=== PATIENT | male | born 1970 | race Caucasian/White ===

== ENCOUNTER 2021-11-29 21:05 | Inpatient (IN) | payer MEDICARE, SELFPAY ==
--- NOTE | 2021-11-29 21:07 | XRR_ITS ---
PROCEDURE INFORMATION: Exam: XR Chest Exam date and time: 11/29/2021 9:29 PM Age: 51 years old Clinical indication: Fever TECHNIQUE: Imaging protocol: Radiologic exam of the chest. Views: 1 view. COMPARISON: CR Chest 1 [place] [id number] 05/05/2017 1:21 PM FINDINGS: Lungs: Right hilar to lower lobe atelectasis versus minimal infiltrate. Pleural spaces: Unremarkable. No pleural effusion. No pneumothorax. Heart/Mediastinum: Unremarkable. No cardiomegaly. Bones/joints: Unremarkable. XR/XR chest 1V portable [id number] IMPRESSION: Right hilar to lower lobe atelectasis versus minimal infiltrate.
[2021-11-29 21:22] VITALS: BP 139/74; PULSE 98; RESP 18; TEMP 38.2; O2SAT 99; BMI 32.1
--- NOTE | 2021-11-29 21:29 | W.ED.GENADLT ---
Documented by User: JAREK Rai 11/29/21 23:31 HPI - General Adult General: Chief complaint: Abdominal Pain Stated complaint: PAIN ALL OVER Time Seen by Provider: 11/29/21 21:23 History of Present Illness: Patient is a 51-year-old male comes to the ED via EMS with pain all over. Ambulance started IV and started patient with a bag of IV fluids. Patient states he has been having pain all over his body and body aches for the past couple days. Endorses some nausea but denies any emesis. Denies any localized pain such as chest pain or abdominal pain. He does endorse having some generalized abdominal pain. He was very nonspecific about his pain and just continues to state its all over his body. Patient does admit to using IV heroin and IV methamphetamines along with marijuana in the last 24 hours. Associated symptoms: Reports nausea; Deny chest pain, dyspnea, headache(s), rash, palpitations or vomiting Review of Systems Const: Reports: body aches; Denies: fever(s), chills or fatigue Eyes: Denies: change in vision or eye discomfort ENMT: Denies: throat pain, odynophagia, nasal discharge or nasal congestion Card: Denies: chest pain, palpitations, edema, swelling of feet/ankles, dyspnea on exertion or orthopnea Resp: Denies: dyspnea, productive cough or non-productive cough GI: Reports: nausea; Denies: abdominal pain, vomiting, diarrhea, constipation or hematochezia : Denies: flank pain, difficulty urinating, dysuria or hematuria Musc: Denies: neck pain, back pain or extremity swelling Skin/Breast: Denies: rash or new lesions Neuro: Denies: headache(s), numbness in extremities or weakness in extremities [facility] ED PFSH: Medical History No pertinent family history Surgical History Hx of cholecystectomy Social History Smoking and tobacco status: current every day smoker Physical Exam Const: COMMON NORMALS: no acute distress, patient oriented x3 and alert GENERAL APPEARANCE: cooperative and comfortable OTHER: Patient is only giving short brief answers to all my questions and seems to be avoiding talking or giving more details during history. HENMT: COMMON NORMALS: normocephalic HEAD & SCALP: normocephalic MOUTH: Normal oral and palatal mucosa present THROAT: posterior oropharynx normal and uvula midline Eye: COMMON NORMALS: Equal, round and reactive pupils present PUPIL: Yes Equal, round and reactive pupils present, Yes Pupil accommodation reflex normal, Yes Dilated pupils bilaterally, Yes pupil size - right Right pupil size (mm): 4 and Yes pupil size - left Left pupil size (mm): 4 Neck/C-Spine: COMMON NORMALS: supple GENERAL: Yes normal visual inspection Resp: COMMON NORMALS: normal respiratory effort, No retractions, No use of accessory muscles and clear to auscultation bilaterally AUSCULTATION: clear to auscultation bilaterally Cardio: COMMON NORMALS: regular rate, regular rhythm, S1 normal heart sound present, S2 normal heart sound present, No gallops present (Cardio), No clicks present (Cardio), No murmurs present (Cardio) and Peripheral pulses 2+ throughout RATE: regular rate RHYTHM: regular rhythm HEART SOUNDS: S1 normal heart sound present and S2 normal heart sound present PERIPHERAL PULSES: Peripheral pulses 2+ throughout GI: COMMON NORMALS: Normal to inspection, nondistended, normoactive bowel sounds present, Soft to palpation, non-tender and no masses PALPATION: Yes Soft to palpation : COMMON NORMALS: Yes no CVA tenderness BLADDER/KIDNEY EXAM: Yes no CVA tenderness Back/Pelvis: COMMON NORMALS: no CVA tenderness Extremity: COMMON NORMALS: normal to inspection Neuro: COMMON NORMALS: patient oriented x3 and moves all extremities SENSORIUM/ORIENTATION: Yes alert Skin: GENERAL SKIN EXAM: dry skin Course Vital Signs: Vital signs: Vital Signs Temperature 100.8 F H 11/29/21 21:22 Pulse Rate 98 11/29/21 21:22 Respiratory Rate 18 11/29/21 21:22 Blood Pressure 139/74 11/29/21 21:22 Pulse Oximetry 99 11/29/21 21:22 [facility] - General Adult Lab Data I reviewed the patient's lab results. : 11/29/21 20:45 11/29/21 20:45 Radiology Impressions Chest X-Ray 11/29/21 21:07 IMPRESSION: Right hilar to lower lobe atelectasis versus minimal infiltrate. Abdomen/Pelvis CT 11/29/21 22:01 IMPRESSION: 1. Mildly prominent fluid in the small bowel without dilation may reflect an enteritis. 2. Spleen enlarged to 13.8 cm. 3. Cholecystectomy. Laboratory Results WBC 11.2 10^3/uL (4.0-10.0) H 11/29/21 20:45 RBC 5.23 10^6/uL (4.1-5.3) 11/29/21 20:45 Hgb 15.4 g/dL (11.7-16.6) 11/29/21 20:45 Hct 42.1 % (42.0-52.0) 11/29/21 20:45 MCV 80.5 fl (80-94) 11/29/21 20:45 MCH 29.4 pg (28.0-34.0) 11/29/21 20:45 MCHC 36.6 g/dL (30.0-36.0) H 11/29/21 20:45 RDW 12.5 % (12.1-15.1) 11/29/21 20:45 Plt Count 192 10^3/cmm (130-400) 11/29/21 20:45 MPV 12.4 fL (7.4-10.4) H 11/29/21 20:45 Neut % (Auto) 91.7 % 11/29/21 20:45 Lymph % (Auto) 4.3 % 11/29/21 20:45 Drew % (Auto) 3.2 % 11/29/21 20:45 Eos % (Auto) 0.1 % 11/29/21 20:45 Baso % (Auto) 0.2 % 11/29/21 20:45 Neut # (Auto) 10.25 10^3/uL (1.8-7.7) H 11/29/21 20:45 Lymph # (Auto) 0.5 10^3/uL (0.8-4.8) L 11/29/21 20:45 Drew # (Auto) 0.4 10^3/uL (0.2-0.9) 11/29/21 20:45 Eos # (Auto) 0.0 10^3/uL (0.0-0.8) 11/29/21 20:45 Baso # (Auto) 0.0 10^3/uL (0.0-0.1) 11/29/21 20:45 Nucleated RBC % (auto) 0 % 11/29/21 20:45 Nucleated RBCs # 0.0 /100WBC 11/29/21 20:45 Sodium 140 mmol/L (136-145) 11/29/21 20:45 Potassium 3.6 mmol/L (3.5-5.1) 11/29/21 20:45 Chloride 103 mmol/L (98-107) 11/29/21 20:45 Carbon Dioxide 21 mmol/L (22-29) L 11/29/21 20:45 Anion Gap 19.6 (5-19) H 11/29/21 20:45 BUN 25 mg/dL (6-20) H 11/29/21 20:45 Creatinine 1.5 mg/dL (0.7-1.2) H 11/29/21 20:45 GFR Calculation 49.1 mL/min (90-130) L 11/29/21 20:45 Glucose 120 mg/dL (65-115) H 11/29/21 20:45 Calculated Osmolality 296 mOsm/kg (285-295) H 11/29/21 20:45 Lactate 4.4 mmol/L (0.5-2.2) H* 11/29/21 21:44 Calcium 9.7 mg/dL (8.5-10.5) 11/29/21 20:45 Total Bilirubin 1.6 mg/dL (0.15-1.2) H 11/29/21 20:45 AST 594 U/L (0-40) H 11/29/21 20:45 ALT 510 U/L (0-41) H 11/29/21 20:45 Alkaline Phosphatase 189 IU/L (40-130) H 11/29/21 20:45 Total Protein 7.2 g/dL (6.6-8.7) 11/29/21 20:45 Albumin 4.2 g/dL (3.5-5.2) 11/29/21 20:45 Globulin 3.0 g/dL (1.3-4.6) 11/29/21 20:45 Lipase 19 U/L (13-60) 11/29/21 20:45 Hepatitis A IgM Ab Non-reactive (Nonreactive) 11/29/21 20:45 Hep Bs Antigen Non-reactive (Nonreactive) 11/29/21 20:45 Hep Bs Antibody 72.3 (11.5-1000) 11/29/21 20:45 Hep B Core Total Ab Non-reactive (Nonreactive) 11/29/21 20:45 Hepatitis C Antibody Reactive (Nonreactive) H 11/29/21 20:45 SARS-CoV-2 Ag (Rapid) Negative (Negative) 11/29/21 21:49 Discharge Plan Discharge Patient Disposition: Admitted As Inpatient Admit Provider: Marion Brambila Condition: Stable Coding Level of Care Code ED Collar Closer Lockstitch for Chg Fwd Exam Comprehensive Documented by User: Jason Hsu MD 11/29/21 23:06 HPI - General Adult General: Chief complaint: Abdominal Pain Stated complaint: PAIN ALL OVER Time Seen by Provider: 11/29/21 21:23 [facility] ED PFSH: Medical History No pertinent family history Surgical History Hx of cholecystectomy Social History Smoking and tobacco status: current every day smoker Course Vital Signs: Vital signs: Vital Signs Temperature 100.8 F H 11/29/21 21: Pulse Rate 98 11/29/21 21:22 Respiratory Rate 18 11/29/21 21:22 Blood Pressure 139/74 11/29/21 21:22 Pulse Oximetry 99 11/29/21 21:22 MDM - General Adult Medical Decision Making Patient presents with a fever he does have history of IV drug use along with recent use. CT of his abdomen here is normal does have an elevated lactate could be due to some dehydration we will trend his lactate patient's blood pressures here been normal. Will admit with his history of IV drug use to follow blood cultures and his fever will start antibiotics here. Spoke to hospitalist who is admitting. Lab Data : 11/29/21 20:45 11/29/21 20:45 Radiology Impressions Chest X-Ray 11/29/21 21:07 IMPRESSION: Right hilar to lower lobe atelectasis versus minimal infiltrate. Abdomen/Pelvis CT 11/29/21 22:01
[2021-11-29 21:38] LABS: Basophils % 0.2 %; Eosinophils % 0.1 %; Hematocrit 42.1 % (42.0-52.0); Hemoglobin 15.4 g/dL (11.7-16.6); Lymphocytes # 0.5 10^3/uL (0.8-4.8); Lymphocytes % 4.3 %; Mean Corpuscular HGB Conc 36.6 g/dL (30.0-36.0); Mean Corpuscular Hemoglobin 29.4 pg (28.0-34.0); Mean Corpuscular Volume 80.5 fl (80-94); Mean Platelet Volume 12.4 fL (7.4-10.4); Monocytes # 0.4 10^3/uL (0.2-0.9); Monocytes % 3.2 %; Neutrophils # 10.25 10^3/uL (1.8-7.7); Neutrophils % 91.7 %; Nucleated Red Blood Cells % 0 %; Platelet Count 192 10^3/cmm (130-400); Red Blood Count 5.23 10^6/uL (4.1-5.3); Red Cell Distribution Width 12.5 % (12.1-15.1); White Blood Count 11.2 10^3/uL (4.0-10.0)
[2021-11-29] MEDS: sodium chloride 0.9% 1,000 ML 999 ML IV ×2 (21:40→22:29)
[2021-11-29] MEDS: acetaminophen 500 mg Tablet 1000 MG PO (21:40)
[2021-11-29] MEDS: ondansetron 2 mg/ML SDV 2 mL 4 MG IVP (21:45)
[2021-11-29 21:53] LABS: Alanine Aminotransferase 510 U/L (0-41); Albumin Level 4.2 g/dL (3.5-5.2); Alkaline Phosphatase 189 IU/L (40-130); Anion Gap 19.6 (5-19); Aspartate Amino Transferase 594 U/L (0-40); Blood Urea Nitrogen 25 mg/dL (6-20); Calcium 9.7 mg/dL (8.5-10.5); Carbon Dioxide 21 mmol/L (22-29); Chloride 103 mmol/L (98-107); Glomerular Filtration Rate 49.1 mL/min (90-130); Glucose 120 mg/dL (65-115); Lipase 19 U/L (13-60); Osmolality Calculated 296 mOsm/kg (285-295); Potassium 3.6 mmol/L (3.5-5.1); Sodium 140 mmol/L (136-145); Total Bilirubin 1.6 mg/dL (0.15-1.2); Total Protein 7.2 g/dL (6.6-8.7)
--- NOTE | 2021-11-29 22:01 | CTR_ITS ---
PROCEDURE INFORMATION: Exam: CT Abdomen And Pelvis Without Contrast Exam date and time: 11/29/2021 10:14 PM Age: 51 years old Clinical indication: Nausea; Abdominal pain; Generalized; Prior surgery; Surgery date: 6+ months; Surgery type: Raeann; Additional info: Generalized abdominal pain and nausea TECHNIQUE: Imaging protocol: Computed tomography of the abdomen and pelvis without contrast. Radiation optimization: All CT scans at this facility use at least one of these dose optimization techniques: automated exposure control; mA and/or kV adjustment per patient size (includes targeted exams where dose is matched to clinical indication); or iterative reconstruction. COMPARISON: CT abdomen pelvis w con* [id number] 11/10/2018 12:05 PM RADIATION DOSE METRICS: Total DLP (mGy-cm): 1411.03 FINDINGS: Liver: Normal. No mass. Gallbladder and bile ducts: Cholecystectomy. Pancreas: Normal. No ductal dilation. Spleen: Spleen enlarged to 13.8 cm. Adrenal glands: Normal. No mass. Kidneys and ureters: Normal. No hydronephrosis. Stomach and bowel: Mildly prominent fluid in the small bowel without dilation may reflect an enteritis. Appendix: No evidence of appendicitis. Intraperitoneal space: Unremarkable. No free air. No significant fluid collection. Vasculature: Unremarkable. No abdominal aortic aneurysm. Lymph nodes: Unremarkable. No enlarged lymph nodes. Urinary bladder: Unremarkable as visualized. Reproductive: Unremarkable as visualized. Bones/joints: Unremarkable. No acute fracture. Soft tissues: Unremarkable. CT/CT abdomen pelvis wo con [id number] IMPRESSION: 1. Mildly prominent fluid in the small bowel without dilation may reflect an enteritis. 2. Spleen enlarged to 13.8 cm. 3. Cholecystectomy.
[2021-11-29 22:17] LABS: Lactate (Lactic Acid level) 4.4 mmol/L (0.5-2.2)
[2021-11-29 22:42] LABS: SARS Covid-2 Antigen Negative (Negative)
[2021-11-29 22:42] LABS: Hepatitis A Antibody IgM Non-Reactive (Nonreactive); Hepatitis B Core AB, Total Non-Reactive (Nonreactive); Hepatitis B Surface AB 72.3 (11.5-1000); Hepatitis B Surface Antigen Non-Reactive (Nonreactive); Hepatitis C Virus Antibody Reactive (Nonreactive)
[2021-11-29] MEDS: piperacillin-tazobactam 3.375 GM in sodium chloride 0.9% (plus) 50 ML IV (23:20)
[2021-11-29 23:47] LABS: Lactate (Lactic Acid level) 2.7 mmol/L (0.5-2.2)
[2021-11-29 23:59] VITALS: BP 127/88; PULSE 87; RESP 17; TEMP 37; O2SAT 99
[2021-11-30 00:26] VITALS: BP 128/78; PULSE 86; RESP 18; TEMP 37.2; O2SAT 97
--- NOTE | 2021-11-30 01:11 | P.HP_ITS ---
Providers/Chief Complaint 2 Admitting Physician: Marion Brambila MD Chief Complaint: PAIN ALL OVER History of Present Illness Maynor Juarez is a 51 year old male with past medical history of drug abuse who presents to the hospital today with generalized myalgias getting worse for last 2 to 3 days along with nausea and decreased oral intake.? Patient states he uses drugs on a daily basis including amphetamines and heroin with last use earlier on 11/29.? He denies of having any dysuria, diarrhea, headache, chest pain but does complain of runny nose.? He denies of having any history of seizures because of withdrawal from the drugs. On presentation in the ER he was found to have a white count of 11.2, creatinine of 1.5, lactate of 2.7, bilirubin of 1.6, AST/ALT of 594/510 with alkaline phosphatase of 189 Review of Systems 2 General: Reports: 10 or more systems reviewed and unremarkable except in HPI and below Const: Denies: fever(s), chills or body aches Eyes: Denies: change in vision, blurry vision or photophobia ENMT: Reports: hoarseness; Denies: throat pain, enlarged tonsils, odynophagia or nasal congestion Card: Denies: chest pain, palpitations, irregular heart rhythm, edema, swelling of feet/ankles, lightheadedness, pre-syncope, dyspnea on exertion or orthopnea Resp: Denies: dyspnea, productive cough, non-productive cough, wheezing, stridor, pain on inspiration, change in phlegm color, hemoptysis or chest congestion GI: Denies: abdominal pain, nausea, vomiting, hematemesis, coffee ground emesis, dysphagia, heartburn, diarrhea, constipation, GI cramping, change in stool character, hematochezia or melena : Denies: flank pain, dysuria, urinary frequency, urinary urgency, urinary hesitancy or hematuria Musc: Denies: neck pain, back pain, extremity pain, joint swelling, joint warmth or deformity Neuro: Denies: headache(s), numbness in extremities, weakness in extremities, sensory changes, difficulty walking, frequent falls, dizziness, vertigo, behavioral changes, Slurred speech present or seizure-like activity Psych: Denies: anxiety, depression, suicidal ideation or homicidal ideation Endo: Denies: polyuria, polydipsia, tired all the time, cold intolerance or hot flashes Cong/Lymph: Denies: easy bruising or easy bleeding Medications/Allergies Home Medications Medication Instructions Recorded Confirmed Last Taken Type clonazepam 1 mg tablet (Klonopin) 1 mg PO TID 10/12/19 11/30/21 11/28/21 History trazodone 100 mg tablet 100 mg PO BEDTIME PRN Sleep 10/12/19 11/30/21 11/27/21 History benztropine 1 mg tablet 1 mg PO BID 11/30/21 11/30/21 11/28/21 History meloxicam 7.5 mg tablet 7.5 mg PO DAILY PRN Pain 11/30/21 11/30/21 Unknown History Allergies Allergy/AdvReac Type Severity Reaction Status Date / Time No Known Allergies Allergy Verified 04/26/21 11:57 PFSH Acute 2 PFSH: Medical History (Updated 11/30/21 @ 12:44 by Monster Villanueva MD) History of intravenous drug abuse Hyperbilirubinemia Myositis Transaminitis Surgical History (Updated 11/30/21 @ 12:44 by Monster Villanueva MD) History of shoulder surgery Hx of cholecystectomy Social History Smoking and tobacco status: current every day smoker Vitals/I&O/Wt Last Vital Signs Temp 99.0 F 11/30/21 00:26 Pulse 86 11/30/21 00:26 Resp 18 11/30/21 00:26 BP 128/78 11/30/21 00:26 Pulse Ox 97 11/30/21 00:26 11/29/21 11/29/21 11/30/21 14:59 22:59 06:59 Intake Total 2049 Balance 2049 Weight last 48 hrs Weight 113.398 kg Physical Exam 2 Narrative: GEN: Awake, alert and oriented, no acute distress, anxious, jittery CVS: S1S@ N RS: CTA B/L except crackles over RUL Abd: Soft, nt/nd , bs+ PROTOTYPE FABRICATOR: no focal neuro deficits Data 11/30/21 10:28 11/30/21 10:28 Micro: Microbiology 11/29/21 22:04 Blood Culture - Preliminary Blood SPECIMEN COLLECTED 11/29/21 22:00 Blood Culture - Preliminary Blood SPECIMEN COLLECTED A&P Assessment and plan (1) Sepsis: Status: Acute (2) Acute kidney injury: Status: Acute (3) History of intravenous drug abuse: Status: Acute (4) Transaminitis: Status: Acute (5) Hyperbilirubinemia: Status: Acute (6) Fever: Status: Acute (7) Bronchitis: Status: Acute Plan 51-year-old with past medical history of IV drug abuse who is an active drug user presented to the ER with complaints of fever and myalgias. Sepsis: Present on admission.? Ruled in by tachycardia, fever, elevated lactate, leukocytosis, target organ injury of CYNTHIA and transaminitis. Check blood culture, UA, urine culture, MRSA swab, HIV, hepatitis panel, procalcitonin.? Check COVID-19 antigen, flu swab. Tick panel sent from the ER. For now start patient on vancomycin and Zosyn.? Given history of IV drug abuse for now we will continue with broad-spectrum antibiotics and will de-escalate as per culture results.? If patient blood cultures come back positive will check echocardiogram to rule out infective endocarditis. Patient does have a history of myositis.? CPK within normal limits. Keep mean artery pressure 65. Normal saline at 75 cc/h. Acute kidney injury: Most likely secondary to IV drug abuse, dehydration. IV hydration as above. Check CT abdomen pelvis to rule out obstructive nephropathy. Transaminitis: Postcholecystectomy. Bilirubin and transaminitis improving than before. History of hepatitis C. IV fluid as above. Will continue to monitor. History of IV drug abuse: [facility] protocol for withdrawal. Full code. Regular diet. Lovenox for DVT prophylaxis. Pepcid for PUD prophylaxis. Attestations 2 Medical Necessity Statement*: Expected more than 2 midnights management of sepsis in a patient with history of IV drug abuse, acute kidney injury Time Spent in Patient Care: Greater than 35 minutes Coding Level of Care Code Acute Code for [facility] Diagnoses Sepsis A41.9 Acute kidney injury N17.9 History of intravenous drug abuse F19.11 Transaminitis R74.01 Hyperbilirubinemia E80.6 Fever R50.9 Bronchitis J40
[2021-11-30] MEDS: enoxaparin 40 mg/0.4 mL Syringe SUBCUT (01:29)
[2021-11-30] MEDS: sodium chloride 0.9% 1,000 ML 75 ML IV ×2 (01:30→20:09)
[2021-11-30 01:42] LABS: Bilirubin Urine Neg (Negative); Blood Urine Neg (Negative); Glucose Urine UA Norm (Normal); Ketones Urine Negative (Negative); Nitrate Urine Negative (Negative); Protein Urine Trace (Negative); Specific Gravity, Urine 1.005 (1.005-1.030); Urine Appearance Clear (CLEAR); Urine Color Dark Yellow (Yellow); Urobilinogen Urine 1 mg/dL (Negative); pH Urine 6 (5-7)
[2021-11-30 01:43] LABS: Add Urine Culture? No; Add Urine Microscopic? YES; Bacteria Urine TRACE /hpf; Leukocyte Esterase Urine Negative (Negative); Mucus Urine TRACE /hpf; RBC Urine 0-4 /hpf (0-2); Squamous Epithelial Cell Urine 0-4 /hpf (0-5); WBC Urine 0-4 /hpf (0-5)
--- NOTE | 2021-11-30 01:48 | PC.PHAR ---
Pharmacokinetic dosing service Date: 11/30/21 Time: 020 Objective: Patient: Maynor Juarez Floor: 263-1 Age: 51 yo Serum creatinine: 1.5 mg/dL Height: 74.0 Inches Weight (kg): 113.398 Diagnosis: Relevant medical/social history: Cultures and sensitivities: Other labs: Assessment: IBW (kg): 82.20 Dosing wt(kg): 113.398 Estimated Creatinine clearance (ml/min): 67.0 CRCL method: Cockcroft and Gault using ibw(default). Drug selected: Vancomycin Loading dose (mg): 0 Vd (liters): 102.1 (factor used: 0.9 L/kg) Tai (hr-1): 0.060 Half life (hrs): 11.55 Recommended dose: 1500 mg Interval: 12 hrs Infusion time (hrs): 1.5 Predicted peak (mcg/mL): 27.4 Predicted trough (mcg/mL): 14.59 Total body weight is being used for vancomycin dosing. Renal function is stable [ ] /unstable [ ] Recommendations: Give Vancomycin 1500 mg q 12 hrs with an expected Cpeak of 27.4 mcg/ml and an expected Ctrough of 14.59 mcg/ml Renal dosing of other antibiotics (review renal dosing of other medications and list guidelines here): Thank you for the consult, will continue to follow. Signature: Elyssa Polanco [facility]
[2021-11-30 01:57] LABS: Creatine Phosphokinase 110 U/L (39-308)
[2021-11-30 02:01] LABS: HIV 1 & 2 Antibody Non-Reactive (Non-Reactiv); HIV 1 & 2 Antigen Non-Reactive (Non-Reactiv)
[2021-11-30 04:00] VITALS: BP 132/81; PULSE 81; RESP 18; TEMP 37.2; O2SAT 98
[2021-11-30 08:00] VITALS: BP 127/80; PULSE 76; RESP 16; TEMP 36.3; O2SAT 98
[2021-11-30] MEDS: pantoprazole DR 40 mg Tablet PO (08:40)
[2021-11-30] MEDS: piperacillin-tazobactam 3.375 GM in sodium chloride 0.9% (plus) 50 ML IV ×2 (10:03→17:38)
[2021-11-30] MEDS: LORazepam 2 mg/mL INJ 1 mL IVP ×2 (10:26→21:15)
[2021-11-30 10:27] LABS: Amphetamines Screen Urine Positive (Negative); Barbiturates Screen Urine Negative (Negative); Benzodiazepines Screen Urine Negative (Negative); Cocaine Screen Urine Negative (Negative); Opiate Screen Urine Positive (Negative); PCP Screen Urine Negative (Negative); THC Screen Urine Positive (Negative)
[2021-11-30 10:38] LABS: Urine Creatinine 172 mg/dL (39-259); Urine Random Chloride 71 mmol/L; Urine Random Sodium 26 mmol/L
[2021-11-30 10:39] LABS: Basophils # 0.1 10^3/uL (0.0-0.1); Basophils % 0.4 %; Eosinophils % 0.1 %; Lymphocytes # 2.6 10^3/uL (0.8-4.8); Lymphocytes % 11.8 %; Mean Corpuscular HGB Conc 34.2 g/dL (30.0-36.0); Mean Corpuscular Hemoglobin 29.1 pg (28.0-34.0); Mean Platelet Volume 11.9 fL (7.4-10.4); Monocytes # 2.2 10^3/uL (0.2-0.9); Monocytes % 9.8 %; Neutrophils # 17.11 10^3/uL (1.8-7.7); Neutrophils % 76.9 %; Nucleated Red Blood Cells % 0 %; Platelet Count 168 10^3/cmm (130-400); Red Blood Count 4.47 10^6/uL (4.1-5.3); Red Cell Distribution Width 13.2 % (12.1-15.1); White Blood Count 22.2 10^3/uL (4.0-10.0)
[2021-11-30 10:44] LABS: Influenza A by IFA Negative (Negative); Influenza B by IFA Positive (Negative)
[2021-11-30 11:16] LABS: Procalcitonin 55.13 ng/mL (0-0.5)
[2021-11-30 11:23] LABS: Potassium, Radom Urine > 120 mmol/L
[2021-11-30 11:27] LABS: Alanine Aminotransferase 335 U/L (0-41); Albumin Level 3.6 g/dL (3.5-5.2); Alkaline Phosphatase 145 IU/L (40-130); Anion Gap 13.5 (5-19); Aspartate Amino Transferase 240 U/L (0-40); Blood Urea Nitrogen 27 mg/dL (6-20); Calcium 8.2 mg/dL (8.5-10.5); Carbon Dioxide 25 mmol/L (22-29); Chloride 104 mmol/L (98-107); Globulin 2.5 g/dL (1.3-4.6); Glomerular Filtration Rate 53.2 mL/min (90-130); Glucose 86 mg/dL (65-115); Iron 17 ug/dL (59-158); Osmolality Calculated 292 mOsm/kg (285-295); Percent Saturation 9.6 % (20-50); Potassium 3.5 mmol/L (3.5-5.1); Sodium 139 mmol/L (136-145); Total Bilirubin 1.2 mg/dL (0.15-1.2); Total Iron Binding Capacity 177 mcg/dl; Total Protein 6.1 g/dL (6.6-8.7); Unsaturated Iron Binding 160 ug/dL (112-347)
[2021-11-30 11:29] LABS: Thyroid Stimulating Hormone 0.23 uIU/mL (0.27-4.20); Vitamin B12 764 pg/mL (232-1245)
[2021-11-30 11:45] VITALS: BP 141/84; PULSE 118; RESP 16; TEMP 36.6; O2SAT 95
--- NOTE | 2021-11-30 11:50 | PM.MISC ---
Miscellaneous Note Purpose of Documentation: Cross coverage note. Note: Admitted overnight. Patient sitting up on examination today. States he has been using drugs on a daily basis with last use of methamphetamines yesterday for last couple of months. He came in yesterday because of weakness, myalgias, feeling tired along with nausea. He has subjective feels of fever though has not checked his fevers at home. Urine drug screen positive for opiates, methamphetamines, marijuana. Hepatitis C antibody reactive. On examination patient states he is feeling as if he is going into withdrawal with feeling jittery, nauseous, palpitations. States his urine is extremely dark in color and does have any burning sensation as well. Check MRSA swab, lipid panel, CRP, TSH, flu swab. Follow-up urine culture, blood culture. CIWA protocol Ativan. Continue with IV fluids at 75 cc/h.
[2021-11-30 12:34] LABS: Free T4 Free Thyroxine 1.15 ng/dL (0.82-1.77); T3 Free 2.1 PG/ML (2.0-4.4)
[2021-11-30] MEDS: oseltamivir phosphate 75 mg Capsule PO ×2 (13:04→20:09)
[2021-11-30] MEDS: LORazepam 2 mg Tablet PO (15:05)
[2021-11-30] MEDS: folic acid 1 MG, multivitamin inj 10 ML, thiamine 100 MG in sodium chloride 0.9% 1,000 ML 252.8 MG IV (15:06)
[2021-11-30 15:42] VITALS: BP 159/89; PULSE 72; RESP 15; TEMP 36.4; O2SAT 99
[2021-11-30] MEDS: ferrous gluconate 324 mg Tablet PO (17:38)
[2021-11-30] MEDS: nicotine 21 mg Patch 1 PATCH TRANSDERMA (18:54)
[2021-11-30 19:08] LABS: Acinetobacter baumannii Not Detected (NOT DETECT); Bacteroides fragilis Not Detected (NOT DETECT); CTX-M Not Detected (NOT DETECT); Citrobacter Not Detected (NOT DETECT); Cronobacter sakazakii Not Detected (NOT DETECT); Enterobacter cloacae complex Not Detected (NOT DETECT); Enterobacter non cloacae Not Detected (NOT DETECT); Fusobacterium necrophorum Not Detected (NOT DETECT); Fusobacterium nucleatum Not Detected (NOT DETECT); Haemophilus influenzae Not Detected (NOT DETECT); IMP Resistance Gene Not Detected (NOT DETECT); KPC Resistance Gene Not Detected (NOT DETECT); Klebsiella pneumoniae group Not Detected (NOT DETECT); Morganella morganii Not Detected (NOT DETECT); NDM Resistance Gene Not Detected (NOT DETECT); Neisseria meningitidis Not Detected (NOT DETECT); OXA Resistance Gene Not Detected (NOT DETECT); Pan Candida Not Detected (NOT DETECT); Pan Gram-Positive Not Detected (NOT DETECT); Proteus mirabilis Not Detected (NOT DETECT); Pseudomonas aeruginosa Detected (NOT DETECT); Salmonella Not Detected (NOT DETECT); Serratia Not Detected (NOT DETECT); Serratia marcescens Not Detected (NOT DETECT); Stenotrophomonas maltophilia Not Detected (NOT DETECT); VIM Resistance Gene Not Detected (NOT DETECT)
[2021-11-30 20:00] VITALS: BP 159/72; PULSE 59; RESP 18; TEMP 37; O2SAT 97
[2021-12-01] VITALS: BP 150/92; PULSE 71; RESP 17; TEMP 36.8; O2SAT 98
[2021-12-01] MEDS: LORazepam 2 mg Tablet PO ×2 (00:02→03:56)
[2021-12-01] MEDS: piperacillin-tazobactam 3.375 GM in sodium chloride 0.9% (plus) 50 ML IV (01:32)
[2021-12-01] MEDS: enoxaparin 40 mg/0.4 mL Syringe SUBCUT (01:32)
--- NOTE | 2021-12-01 04:53 | PC.NURSE ---
patient requested IV to be unhooked for a little while, attempted to come out of room, nurse explained that due to pt in isolation due to Flu patient cannot wander the halls at this time, patient pleasant and stated I am ready to go, I am feeling better, I don't need to stay here:. nurse explained patient requires medical treatment and patient continue to state I need to go ahead and leave , nurse asked who is picking patient up, pt stated a margareth, I already called him , nurse explained to patient that if he leaves now he will be leaving AMA. nurse explained AMA to patient and patient verbalized understanding. pt alert and oriented. Call placed to Dr. Brambila explaining pt wanting to leave, stated it will be AMA, questioned nurse about pt current mental status. IV removed, personal belongings given back to pt, hospital gown used as shirt. pt escorted to main entrance per patient request, staff walked with patient to ensure patient does not light a cigarette in the building, as patient walking out stated I could have held out if I could have had a smoke break .
--- NOTE | 2021-12-01 22:15 | P.DS_ITS ---
Discharge Providers Date of Admission: 11/29/21 22:58 Date of Discharge: December 07, 2021 Attending Provider at Admission: Marion Brambila MD Attending Provider at Discharge: Monster Villanueva MD Diagnoses at Discharge Discharge Diagnosis (1) Sepsis: Status: Acute (2) Acute kidney injury: Status: Acute (3) History of intravenous drug abuse: Status: Acute (4) Transaminitis: Status: Acute (5) Hyperbilirubinemia: Status: Acute (6) Fever: Status: Acute (7) Bronchitis: Status: Acute Reason for Visit Reason for Visit: PAIN ALL OVER Hospital Course Hospital Course Maynor Juarez is a 51 year old male with past medical history of drug abuse who presents to the hospital today with generalized myalgias getting worse for last 2 to 3 days along with nausea and decreased oral intake.? Patient states he uses drugs on a daily basis including amphetamines and heroin with last use earlier on 11/29.? He denies of having any dysuria, diarrhea, headache, chest pain but does complain of runny nose.? He denies of having any history of seizures because of withdrawal from the drugs. ?On presentation in the ER he was found to have a white count of 11.2, creatinine of 1.5, lactate of 2.7, bilirubin of 1.6, AST/ALT of 594/510 with alkaline phosphatase of 189. Patient was found to be positive for flu and blood culture were positive as well. He needed further treatment and evaluation but left AMA on 12/01 Physical Exam Narrative: General: No acute distress, AO x3, slightly anxious, jittery HEENT: PERRLA, pupils bilaterally equal and reactive Chest: Normal vesicular breath sounds, no added sounds, equal good air entry bilaterally CVS: S1-S2 regular, no murmurs, no tachycardia, no gallops, no rubs Abdomen: Soft, nontender, no organomegaly, bowel sounds present Neuro: No focal deficits, no facial deformity, AO x3, power 5/5 in all limbs Discharge Data Studies Completed and Pending Completed Studies During Hospitalization Category Date Time Status CT abdomen pelvis wo con [id number] Urgent Cat Scan 11/29/21 22:01 Completed XR chest 1V portable [id number] Urgent Exams 11/29/21 21:07 Completed Radiology Impressions Chest X-Ray 11/29/21 21:07 IMPRESSION: Right hilar to lower lobe atelectasis versus minimal infiltrate. Abdomen/Pelvis CT 11/29/21 22:01 IMPRESSION: 1. Mildly prominent fluid in the small bowel without dilation may reflect an enteritis. 2. Spleen enlarged to 13.8 cm. 3. Cholecystectomy. Microbiology 11/29/21 22:04 Blood Blood Culture - Final NO GROWTH AFTER 5 DAYS 11/29/21 22:00 Blood Blood Culture - Final Pseudomonas aeruginosa 11/30/21 10:13 Nose MRSA Culture - Final 11/30/21 00:30 Urine Kidney Bacterial Antigens - Final Laboratory Results WBC 22.2 10^3/uL (4.0-10.0) H 11/30/21 10:28 RBC 4.47 10^6/uL (4.1-5.3) 11/30/21 10:28 Hgb 13.0 g/dL (11.7-16.6) 11/30/21 10:28 Hct 38.0 % (42.0-52.0) L 11/30/21 10:28 MCV 85.0 fl (80-94) D 11/30/21 10:28 MCH 29.1 pg (28.0-34.0) 11/30/21 10:28 MCHC 34.2 g/dL (30.0-36.0) D 11/30/21 10:28 RDW 13.2 % (12.1-15.1) 11/30/21 10:28 Plt Count 168 10^3/cmm (130-400) 11/30/21 10:28 MPV 11.9 fL (7.4-10.4) H 11/30/21 10:28 Neut % (Auto) 76.9 % 11/30/21 10:28 Lymph % (Auto) 11.8 % 11/30/21 10:28 [place] % (Auto) 9.8 % 11/30/21 10:28 Eos % (Auto) 0.1 % 11/30/21 10:28 Baso % (Auto) 0.4 % 11/30/21 10:28 Neut # (Auto) 17.11 10^3/uL (1.8-7.7) H 11/30/21 10:28 Lymph # (Auto) 2.6 10^3/uL (0.8-4.8) 11/30/21 10:28 [place] # (Auto) 2.2 10^3/uL (0.2-0.9) H 11/30/21 10:28 Eos # (Auto) 0.0 10^3/uL (0.0-0.8) 11/30/21 10:28 Baso # (Auto) 0.1 10^3/uL (0.0-0.1) 11/30/21 10:28 Nucleated RBC % (auto) 0 % 11/30/21 10:28 Nucleated RBCs # 0.0 /100WBC 11/30/21 10:28 Sodium 139 mmol/L (136-145) 11/30/21 10:28 Potassium 3.5 mmol/L (3.5-5.1) 11/30/21 10:28 Chloride 104 mmol/L (98-107) 11/30/21 10:28 Carbon Dioxide 25 mmol/L (22-29) 11/30/21 10:28 Anion Gap 13.5 (5-19) 11/30/21 10:28 BUN 27 mg/dL (6-20) H 11/30/21 10:28 Creatinine 1.4 mg/dL (0.7-1.2) H 11/30/21 10:28 GFR Calculation 53.2 mL/min (90-130) L 11/30/21 10:28 Glucose 86 mg/dL (65-115) 11/30/21 10:28 Calculated Osmolality 292 mOsm/kg (285-295) 11/30/21 10:28 Lactate 2.7 mmol/L (0.5-2.2) H 11/29/21 23:22 Calcium 8.2 mg/dL (8.5-10.5) L 11/30/21 10:28 Iron 17 ug/dL (59-158) L 11/30/21 10:28 TIBC 177 mcg/dl 11/30/21 10:28 % Saturation 9.6 % (20-50) L 11/30/21 10:28 Unsat Iron Binding 160 ug/dL (112-347) 11/30/21 10:28 Total Bilirubin 1.2 mg/dL (0.15-1.2) 11/30/21 10:28 AST 240 U/L (0-40) H 11/30/21 10:28 ALT 335 U/L (0-41) H 11/30/21 10:28 Alkaline Phosphatase 145 IU/L (40-130) H 11/30/21 10:28 Creatine Kinase 110 U/L (39-308) 11/29/21 20:45 C-Reactive Protein 125.0 mg/L (0.0-4.9) H 11/30/21 10:28 Total Protein 6.1 g/dL (6.6-8.7) L 11/30/21 10:28 Albumin 3.6 g/dL (3.5-5.2) 11/30/21 10:28 Globulin 2.5 g/dL (1.3-4.6) 11/30/21 10: Lipase 19 U/L (13-60) 11/29/21 20:45 Vitamin B12 764 pg/mL (232-1245) 11/30/21 10: Folate 4.0 ng/mL (4.5-32.2) L 11/30/21 10:28 Procalcitonin 55.13 ng/mL (0-0.5) H 11/30/21 10:28 TSH 0.23 uIU/mL (0.27-4.20) L 11/30/21 10:28 Free T4 1.15 ng/dL (0.82-1.77) 11/30/21 10: Free T3 2.1 PG/ML (2.0-4.4) 11/30/21 10:28 Urine Color Dark yellow (Yellow) 11/30/21 00:30 Urine Appearance Clear (CLEAR) 11/30/21 00:30 Urine pH 6 (5-7) 11/30/21 00:30 Ur Specific [place] 1.005 (1.005-1.030) 11/30/21 00:30 Urine Protein Trace (Negative) 11/30/21 00:30 Urine Glucose (UA) Norm (Normal) 11/30/21 00:30 Urine Ketones Negative (Negative) 11/30/21 00:30 Urine Blood Neg (Negative) 11/30/21 00:30 Urine Nitrate Negative (Negative) 11/30/21 00:30 Urine Bilirubin Neg (Negative) 11/30/21 00:30 Urine Urobilinogen 1 mg/dL (Negative) H 11/30/21 00:30 Ur Leukocyte Esterase Negative (Negative) 11/30/21 00:30 Urine RBC 0-4 /hpf (0-2) H 11/30/21 00:30 Urine WBC 0-4 /hpf (0-5) H 11/30/21 00:30 Ur Squamous Epith Cells 0-4 /hpf (0-5) H 11/30/21 00:30 Amorphous Sediment Not Reportable 11/30/21 00:30 Urine Bacteria Trace /hpf (NONE) 11/30/21 00:30 Urine Mucus Trace /hpf 11/30/21 00:30 Ur Random Sodium 26 mmol/L 11/30/21 00:30 Ur Random Potassium > 120 mmol/L 11/30/21 00:30 Ur Random Chloride 71 mmol/L 11/30/21 00:30 Urine Creatinine 172 mg/dL (39-259) 11/30/21 00:30 Urine Opiates Screen Positive ng/mL (Negative) H 11/30/21 00:30 Ur Barbiturates Screen Negative ng/mL (Negative) 11/30/21 00:30 Ur Phencyclidine Scrn Negative ng/mL (Negative) 11/30/21 00:30 Ur Amphetamines Screen Positive ng/mL (Negative) H 11/30/21 00:30 U Benzodiazepines Scrn Negative ng/mL (Negative) 11/30/21 00:30 Urine Cocaine Screen Negative ng/mL (Negative) 11/30/21 00:30 U Marijuana (THC) Screen Positive ng/mL (Negative) H 11/30/21 00:30 Lyme Ab (Western Blot) <0.90 index 11/29/21 20:45 E. chaffeensis IgG Ab <1:64 11/29/21 20:45 E. chaffeensis IgM Ab <1:20 11/29/21 20:45 E. chaffeensis Interp See note 11/29/21 20:45 E. chaffeensis Comment Not Reportable 11/29/21 20:45 Hepatitis A IgM Ab Non-reactive (Nonreactive) 11/29/21 20:45 Hep Bs Antigen Non-reactive (Nonreactive) 11/29/21 20:45 Hep Bs Antibody 72.3 (11.5-1000) 11/29/21 20:45 Hep B Core Total Ab Non-reactive (Nonreactive) 11/29/21 20:45 Hepatitis C Antibody Reactive (Nonreactive) H 11/29/21 20:45 HCV RNA (PCR) IUs/ml <1.18 not detected Log IU/mL (NOT DETECTED) 11/29/21 22:43 HCV RNA (PCR) IU log10 <15 not detected IU/mL (NOT DETECTED) 11/29/21 22:43 HIV 1&2 Ab & HIV 1 Ag Non-reactive (Non-Reactiv) 11/29/21 20:45 HIV 1&2 Antibody Non-reactive (Non-Reactiv) 11/29/21 20:45 Influenza Type A Ag Negative (Negative) 11/30/21 10:13 Influenza Type B Ag Positive (Negative) H 11/30/21 10:13 Rickettsia IgG Titer 1:64 titer H 11/29/21 20:45 Rickettsia IgG Ab Detected A 11/29/21 20:45 Rickettsia IgM Ab Not detected 11/29/21 20:45 SARS-CoV-2 Ag (Rapid) Negative (Negative) 11/29/21 21:49 Vitals Last Vital Signs Temp 98.3 F 12/01/21 00:00 Pulse 71 12/01/21 00:00 Resp 17 12/01/21 00:00 BP 150/92 12/01/21 00:00 Pulse Ox 98 12/01/21 00:00 Discharge Plan Discharge Patient Disposition: Left Against Medical Advice Condition: Stable Prescriptions: No Action clonazepam [Klonopin] 1 mg tablet 1 mg PO TID 0RF trazodone 100 mg tablet 100 mg PO BEDTIME PRN (Reason: Sleep) 0RF meloxicam 7.5 mg Tablet 7.5 mg PO DAILY PRN (Reason: Pain) 0RF benztropine 1 mg Tablet 1 mg PO BID 0RF Patient Instructions: Opioid Safety Discharge Attestations Time Spent in Discharge Care*: less than 30 min Quality Metrics Clinical Quality Measures [ No reported AMI, CVA or VTE this stay] Coding Level of Care Code Acute Chg [facility] note Diagnoses Sepsis A41.9 Acute kidney injury N17.9 History of intravenous drug abuse F19.11 Transaminitis R74.01 Hyperbilirubinemia E80.6 Fever R50.9 Bronchitis J40
[2021-12-03 14:33] LABS: Lyme AB Screen <0.90 index
[2021-12-03 20:22] LABS: HEP C RNA Viral Load Quant <1.18 NOT DETECTED Log IU/mL (NOT DETECTED); HEP C RNA Viral Load Quant <15 NOT DETECTED IU/mL (NOT DETECTED)
[2021-12-07 17:53] LABS: RMSF IGG DETECTED; RMSF IGM NOT DETECTED
[2021-12-07 21:42] LABS: E. Chaffeensis AB IGG <1:64; E. Chaffeensis AB IGM <1:20
== END 2021-12-01 05:00 | disposition left against medical advice (07) | DRG 872 ==
LOC: ER 22:55 → MEDSURG 23:17
PROVIDERS: Physician Assistant; Admitting Provider Student in an Organized Health Care Education/Training Program; Emergency Provider Emergency Medicine; Visit Provider Student in an Organized Health Care Education/Training Program
DX: A41.9 Sepsis, unspecified organism (principal); N17.9 Acute kidney failure, unspecified; M79.10 Myalgia, unspecified site; F15.90 Other stimulant use, unspecified, uncomplicated; F11.90 Opioid use, unspecified, uncomplicated; F12.90 Cannabis use, unspecified, uncomplicated; F17.200 Nicotine dependence, unspecified, uncomplicated; J40 Bronchitis, not specified as acute or chronic; E86.0 Dehydration; Z53.29 Procedure and treatment not carried out because of patient's decision for other reasons; J10.1 Influenza due to other identified influenza virus with other respiratory manifestations
CPT/HCPCS: 36415; 71045; 74176; 80053; 80306; 81001; 82436; 82550; 82570; 82607; 82746; 83540; 83550; 83605; 83690; 84133; 84145; 84300; 84439; 84443; 84481; 85025; 86140; 86403; 86618; 86666; 86705; 86706; 86709; 86757; 86803; 87040; 87150; 87186; 87205; 87340; 87426; 87522; 87641; 87804; 87806; 96365; 96367; 96372; 96375; 99285; J1650; J2060; J2405; J2543; J3370; J3411; J3490; J7030; J7050

== ENCOUNTER → 2023-10-06 10:22 | Outpatient (BNVA) | payer MEDICARE, SELFPAY | PROVIDERS: Visit Provider Nurse Practitioner Family | DX: J02.9 Acute pharyngitis, unspecified (principal); Z20.818 Contact with and (suspected) exposure to other bacterial communicable diseases | CPT/HCPCS: 87880 ==

== ENCOUNTER 2023-10-08 06:08 | Emergency (ER) | payer MEDICARE, SELFPAY ==
[2023-10-08 06:14] VITALS: BP 184/102; PULSE 87; RESP 20; TEMP 37.2; O2SAT 97; BMI 35.9
[2023-10-08 07:18] VITALS: PULSE 81; O2SAT 95
--- NOTE | 2023-10-08 07:18 | W.ED.SKABFB ---
HPI - Skin/Abscess/Foreign Bdy General: Chief complaint: Fever Stated complaint: hands and feet pain, blisters Time Seen by Provider: 10/08/23 06:33 Source: patient Mode of arrival: ambulatory Limitations: no limitations History of Present Illness: This patient presents to the emergency department because of painful blisters on his hands and feet as well as some throat involvement. He states his symptoms began approximately 2 days ago. He states he was seen in her primary care clinic and they started him on antibiotics. He states the blisters are still uncomfortable on his feet that is difficult for him to bear weight. He had a low-grade fever but not much over 100. He otherwise denies any other constitutional complaints. He states he is able to drink and eat. He denies any change in his urinary habits. He takes methadone for opiate recovery for. He states that his son who is approximately 7 years of old had similar symptoms preceding his and recovered uneventfully. Associated symptoms: Reports fever(s); Deny nausea or vomiting Review of Systems Const: Reports: fever(s) Eyes: Denies: change in vision ENMT: Reports: oral sores; Denies: odynophagia or nasal discharge Card: Denies: chest pain Resp: Denies: dyspnea, productive cough or non-productive cough GI: Denies: abdominal pain, nausea, vomiting or diarrhea : Denies: difficulty urinating, dysuria or urinary frequency Musc: Denies: neck pain or back pain Skin/Breast: Reports: rash, erythema and skin tenderness Neuro: Denies: headache(s), numbness in extremities or weakness in extremities Endo: Denies: polyuria or polydipsia [facility] ED PFSH: Medical History Hyperbilirubinemia Transaminitis History of intravenous drug abuse Myositis Surgical History History of shoulder surgery Hx of cholecystectomy Social History Smoking and tobacco/nicotine status: current every day tobacco/nicotine user Physical Exam Narrative: EXAM NARRATIVE: He is alert no acute distress able to talk in complete sentences without dyspnea. Const: COMMON NORMALS: no acute distress, average body habitus and patient oriented x3 GENERAL APPEARANCE: cooperative HENMT: COMMON NORMALS: normocephalic and moist oral mucous membranes HEAD & SCALP: normocephalic OTHER: As inflamed oral and tongue mucosa without any evidence of exudate. There is no evidence of intraoral mass. His tongue is freely mobile there is no subungual firmness. Eye: COMMON NORMALS: Equal, round and reactive pupils present, EOMs intact bilaterally and conjunctivae normal CONJUNCTIVA: Yes conjunctivae normal PUPIL: Yes Equal, round and reactive pupils present Neck/C-Spine: COMMON NORMALS: full ROM and no lymphadenopathy Chest: COMMONS NORMALS: normal inspection of the chest Resp: COMMON NORMALS: normal respiratory effort, No retractions and clear to auscultation bilaterally EFFORT & INSPECTION: Yes able to speak in complete sentences AUSCULTATION: clear to auscultation bilaterally Cardio: COMMON NORMALS: regular rate, regular rhythm, No murmurs present (Cardio) and Peripheral pulses 2+ throughout RATE: regular rate RHYTHM: regular rhythm PERIPHERAL PULSES: Peripheral pulses 2+ throughout GI: COMMON NORMALS: Normal to inspection, nondistended, normoactive bowel sounds present, Soft to palpation and non-tender PALPATION: Yes Soft to palpation : COMMON NORMALS: Yes no CVA tenderness BLADDER/KIDNEY EXAM: Yes no CVA tenderness Back/Pelvis: COMMON NORMALS: no CVA tenderness, thoracic and lumbar spine normal to inspection, no thoracic nor lumbar tenderness, thoraco-lumbar ROM normal and straight leg raise negative bilaterally Extremity: COMMON NORMALS: full ROM, capillary refill normal, no clubbing, cyanosis or edema, no calf tenderness and no pedal edema Neuro: COMMON NORMALS: patient oriented x3, moves all extremities, no focal motor deficits and no sensory deficits noted Psych: COMMON NORMALS: mental status grossly normal Skin: NARRATIVE SKIN EXAM: He has multiple areas of clear blisters with some central clearing of both soles of his feet as well as minimal involvement of his palms and fingers. Has normal range of motion. There is no ascending lymphangitis or lymphadenopathy. There is no involvement of the skin on the dorsum of his feet or hands. Course Reevaluation(s): Reevaluation #1: Patient states he is feeling some better. Shared findings diagnosis and expected course and return precautions. Time: 10:18 Vital Signs: Vital signs: Vital Signs Temperature 99.0 F 10/08/23 06:14 Pulse Rate 80 10/08/23 07:48 Respiratory Rate 20 H 10/08/23 06:14 Blood Pressure 184/102 10/08/23 06:14 Pulse Oximetry 96 10/08/23 07:48 Oxygen Delivery Me thod Room Air 10/08/23 07:48 MDM - Skin/Abscess/Foreign Bdy Medicial Decision Making This patient presented to the emergency department because of concerns about persistent blisters that have appeared on his feet and hands and a little bit of oral or mouth discomfort over the past few days. He states his son had similar symptoms about a week ago. He denies any other constitutional symptoms been able to eat and drink normally urinating normally. Says it is very uncomfortable to walk on his feet. Clinical examination revealed significant involvement of the soles of his feet with erythematous macules with some central clearing and a few bullae. Isolated to the soles of the feet with no dorsal involvement no proximal involvement. Similar involvement of the hands much less terms of density. Pharynx was mildly erythematous. Laboratories were reassuring. Clinical picture is consistent with viral coxsackie iwso-ynbr-dxc-mouth disease. Discussed expected course with him. He did get some improvement with IV fluids and an single dose of Decadron in the emergency department so we will give him 5 additional days of prednisone. Discussed return precautions. Lab Data I reviewed the patient's lab results. 10/08/23 07:50 10/08/23 07:50 Laboratory Results WBC 9.93 10^3/uL (3.29-11.43) 10/08/23 07:50 RBC 5.35 10^6/uL (3.85-5.65) 10/08/23 07:50 Hgb 15.70 g/dL (11.27-16.99) 10/08/23 07:50 Hct 46.6 % (37-53) 10/08/23 07:50 MCV 87.1 fl (82-101) 10/08/23 07:50 MCH 29.3 pg (27-33) 10/08/23 07:50 MCHC 33.7 g/dL (30-55) 10/08/23 07:50 RDW 13.1 % (12.1-15.1) 10/08/23 07:50 Plt Count 162 10^3/cmm (157-399) 10/08/23 07:50 MPV 12.5 fL (7.4-10.4) H 10/08/23 07:50 Neut % (Auto) 52.9 % 10/08/23 07:50 Lymph % (Auto) 31.9 % 10/08/23 07:50 [place] % (Auto) 13.5 % 10/08/23 07:50 Eos % (Auto) 1.0 % 10/08/23 07:50 Baso % (Auto) 0.5 % 10/08/23 07:50 Neut # (Auto) 5.25 10^3/uL (1.8-7.7) 10/08/23 07:50 Lymph # (Auto) 3.2 10^3/uL (0.8-4.8) 10/08/23 07:50 [place] # (Auto) 1.3 10^3/uL (0.2-0.9) H 10/08/23 07:50 Eos # (Auto) 0.1 10^3/uL (0.0-0.8) 10/08/23 07:50 Baso # (Auto) 0.1 10^3/uL (0.0-0.1) 10/08/23 07:50 Nucleated RBC % (auto) 0 % 10/08/23 07:50 Nucleated RBCs # 0.0 /100WBC 10/08/23 07:50 Sodium 134 mmol/L (136-145) L 10/08/23 07:50 Potassium 4.4 mmol/L (3.5-5.1) 10/08/23 07:50 Chloride 100 mmol/L (98-107) 10/08/23 07:50 Carbon Dioxide 24 mmol/L (22-29) 10/08/23 07:50 Anion Gap 14.4 (5-19) 10/08/23 07:50 BUN 16 mg/dL (6-20) 10/08/23 07:50 Creatinine 1.0 mg/dL (0.7-1.2) 10/08/23 07:50 GFR Calculation 77.9 mL/min (90-130) L 10/08/23 07:50 Glucose 102 mg/dL (65-115) 10/08/23 07:50 Calculated Osmolality 279 mOsm/kg (285-295) L 10/08/23 07:50 Calcium 8.5 mg/dL (8.5-10.5) 10/08/23 07:50 Urine Color Dark yellow (Yellow) 10/08/23 09:20 Urine Appearance Clear (CLEAR) 10/08/23 09:20 Urine pH 6 (5-7) 10/08/23 09:20 Ur Specific [place] 1.015 (1.005-1.030) 10/08/23 09:20 Urine Protein Neg (Negative) 10/08/23 09:20 Urine Glucose (UA) Norm (Normal) 10/08/23 09:20 Urine Ketones Negative (Negative) 10/08/23 09:20 Urine Blood Neg (Negative) 10/08/23 09:20 Urine Nitrate Negative (Negative) 10/08/23 09:20 Urine Bilirubin Neg (Negative) 10/08/23 09:20 Urine Urobilinogen Norm mg/dL (Negative) 10/08/23 09:20 Ur Leukocyte Esterase Negative (Negative) 10/08/23 09:20 No radiology studies performed this visit Discharge Plan Discharge Patient Disposition: Home Clinical Impression: Hand, foot and mouth disease (HFMD) Condition: Stable Prescriptions: New prednisone 20 mg tablet 20 mg PO BID 5 Days Qty: 10 0RF No Action clonazepam [Klonopin] 1 mg tablet 1 mg PO TID trazodone 100 mg tablet 100 mg PO BEDTIME PRN (Reason: Sleep) lidocaine-epinephrine (PF) 2 %-1:200,000 solution 1 ml Infiltration ONCE Qty: 1 0RF povidone-iodine [Betadine Swabsticks] 10 % swab 1 applic topical ONCE Qty: 1 0RF doxycycline hyclate 100 mg tablet 100 mg PO BID 7 Days Qty: 14 0RF prednisone 20 mg tablet 40 mg PO DAILY 5 Days Qty: 10 0RF albuterol sulfate [Ventolin HFA] 90 mcg/actuation HFA aerosol inhaler 2 puff inhalation Q4H PRN (Reason: shortness of breath or wheezing) Qty: 8.5 0RF amoxicillin 875 mg tablet 875 mg PO BID 7 Days Qty: 14 0RF meloxicam 7.5 mg Tablet 7.5 mg PO DAILY PRN (Reason: Pain) benztropine 1 mg Tablet 1 mg PO BID Discharge Orders: Discharge ED (Routine); Ordered 10/08/23 Ordered By: Paul Lopez Discharge Diet: Usual diet Discharge Activity: Increase activity as tolerated Patient Instructions: Opioid Safety, Pain Management, Hand, Foot, and Mouth Disease (ED) Activity Restrictions/Additional Instructions: As we discussed you have a condition called utbc-tjgy-sgp-mouth disease is caused by a common virus. As the blisters you are experiencing on the hands and feet and some of mouth involvement. This usually resolves in several days to a couple of weeks but it is uncomfortable at times. We have provided a prescription for medication that may give you some improve relief of your symptoms. Make sure that you are drinking fluids taking all your usual medications. If your symptoms worsen or you have other concerns you are welcome to return to the emergency department for reevaluation. Coding Level of Care Code ED [employer] Automatic for Reji Farfan
[2023-10-08] MEDS: ketorolac 30 mg/mL INJ 15 MG IVP (07:44)
[2023-10-08] MEDS: dexamethasone 10 mg/mL INJ IVP (07:44)
[2023-10-08 07:48] VITALS: PULSE 80; O2SAT 96
[2023-10-08 08:04] LABS: Basophils # 0.1 10^3/uL (0.0-0.1); Basophils % 0.5 %; Eosinophils # 0.1 10^3/uL (0.0-0.8); Hematocrit 46.6 % (37-53); Lymphocytes # 3.2 10^3/uL (0.8-4.8); Lymphocytes % 31.9 %; Mean Corpuscular HGB Conc 33.7 g/dL (30-55); Mean Corpuscular Hemoglobin 29.3 pg (27-33); Mean Corpuscular Volume 87.1 fl (82-101); Mean Platelet Volume 12.5 fL (7.4-10.4); Monocytes # 1.3 10^3/uL (0.2-0.9); Monocytes % 13.5 %; Neutrophils # 5.25 10^3/uL (1.8-7.7); Neutrophils % 52.9 %; Nucleated Red Blood Cells % 0 %; Platelet Count 162 10^3/cmm (157-399); Red Blood Count 5.35 10^6/uL (3.85-5.65); Red Cell Distribution Width 13.1 % (12.1-15.1); White Blood Count 9.93 10^3/uL (3.29-11.43)
[2023-10-08 08:20] LABS: Anion Gap 14.4 (5-19); Blood Urea Nitrogen 16 mg/dL (6-20); Calcium 8.5 mg/dL (8.5-10.5); Carbon Dioxide 24 mmol/L (22-29); Chloride 100 mmol/L (98-107); Creatinine Clr Calc Pharmacy 119.5906; Glomerular Filtration Rate 77.9 mL/min (90-130); Glucose 102 mg/dL (65-115); Osmolality Calculated 279 mOsm/kg (285-295); Potassium 4.4 mmol/L (3.5-5.1); Sodium 134 mmol/L (136-145)
[2023-10-08 09:29] LABS: Add Urine Microscopic? NO; Charge for UA Resulting for Rev
[2023-10-08 09:33] LABS: Bilirubin Urine Neg (Negative); Blood Urine Neg (Negative); Glucose Urine UA Norm (Normal); Ketones Urine Negative (Negative); Leukocyte Esterase Urine Negative (Negative); Nitrate Urine Negative (Negative); Protein Urine Neg (Negative); Specific Gravity, Urine 1.015 (1.005-1.030); Urine Appearance Clear (CLEAR); Urine Color Dark Yellow (Yellow); Urobilinogen Urine Norm (Negative); pH Urine 6 (5-7)
== END 2023-10-08 10:55 | disposition home or self-care (01) ==
PROVIDERS: Emergency Provider Emergency Medicine
DX: B08.4 Enteroviral vesicular stomatitis with exanthem (principal); Z72.0 Tobacco use
CPT/HCPCS: 80048; 81003; 85025; 96374; 96375; 99284; J1100; J1885

== ENCOUNTER → 2023-12-02 15:40 | Outpatient (BNVA) | payer MEDICARE, SELFPAY | PROVIDERS: Visit Provider Nurse Practitioner | DX: I10 Essential (primary) hypertension (principal); F17.210 Nicotine dependence, cigarettes, uncomplicated | CPT/HCPCS: 83721 ==

== ENCOUNTER 2023-12-03 10:53 | Outpatient (CLI) | payer MEDICARE, SELFPAY ==
--- NOTE | 2023-12-03 10:54 | XRR_ITS ---
PROCEDURE INFORMATION: Exam: XR Chest Exam date and time: 12/03/2023 11:14 AM Age: 53 years old Clinical indication: Shortness of breath; Additional info: I10 - essential (primary) hypertension TECHNIQUE: Imaging protocol: Radiologic exam of the chest. Views: 2 views. COMPARISON: CR XR chest 1V portable [id number] 11/29/2021 9:29 PM FINDINGS: Lungs: Unremarkable. No consolidation. Pleural spaces: Unremarkable. No pleural effusion. No pneumothorax. Heart/Mediastinum: Unremarkable. No cardiomegaly. Bones/joints: Unremarkable. XR/XR chest 2V* [id number] IMPRESSION: No acute findings.
== END 2023-12-03 10:54 | disposition home or self-care (01) ==
PROVIDERS: PCP Nurse Practitioner; Visit Provider Nurse Practitioner
DX: I10 Essential (primary) hypertension (principal)
CPT/HCPCS: 71046; 80053; 80061; 84439; 84443; 84481; 85025

== ENCOUNTER 2024-03-28 12:19 | Emergency (ER) | payer MEDICARE, MEDICAID, SELFPAY ==
[2024-03-28 12:35] VITALS: BP 141/89; PULSE 75; RESP 18; TEMP 36.8; O2SAT 96; BMI 36.4
[2024-03-28 12:45] VITALS: BP 184/112; PULSE 65; RESP 18; O2SAT 98
[2024-03-28 13:00] VITALS: PULSE 65; RESP 17; O2SAT 94
--- NOTE | 2024-03-28 13:10 | XRR_ITS ---
PROCEDURE INFORMATION: Exam: XR Abdomen Exam date and time: 03/28/2024 1:21 PM Age: 53 years old Clinical indication: Abdominal pain; Prior surgery; Surgery date: 6+ months; Surgery type: Cholecystectomy; Patient HX: Rlq pain x 2 weeks; Constipation TECHNIQUE: Imaging protocol: Radiologic exam of the abdomen. Views: 2 Views. Upright and supine views. COMPARISON: CT abdomen pelvis wo con [id number] 11/29/2021 10:14 PM FINDINGS: Gastrointestinal tract: There is excessive colonic stool content. Consistent with constipation. Intraperitoneal space: Right upper quadrant surgical clips Bones/joints: Unremarkable for age. XR/XR acute abdomen series [id number] IMPRESSION: There is excessive colonic stool content. Consistent with constipation.
[2024-03-28 13:22] LABS: Basophils # 0.1 10^3/uL (0.0-0.1); Basophils % 0.8 %; Eosinophils # 0.4 10^3/uL (0.0-0.8); Eosinophils % 3.3 %; Hematocrit 49.3 % (37-53); Lymphocytes # 6.2 10^3/uL (0.8-4.8); Lymphocytes % 53.4 %; Mean Corpuscular HGB Conc 33.7 g/dL (30-55); Mean Corpuscular Hemoglobin 29.5 pg (27-33); Mean Corpuscular Volume 87.6 fl (82-101); Mean Platelet Volume 11.8 fL (7.4-10.4); Monocytes % 8.9 %; Neutrophils # 3.89 10^3/uL (1.8-7.7); Neutrophils % 33.4 %; Nucleated Red Blood Cells % 0 %; Platelet Count 222 10^3/cmm (157-399); Red Blood Count 5.63 10^6/uL (3.85-5.65); Red Cell Distribution Width 13.1 % (12.1-15.1)
[2024-03-28 13:30] VITALS: PULSE 70; RESP 18; O2SAT 94
[2024-03-28 13:36] LABS: Alanine Aminotransferase 32 U/L (0-41); Albumin Level 4.3 g/dL (3.5-5.2); Alkaline Phosphatase 80 U/L (40-130); Aspartate Amino Transferase 21 U/L (0-40); Blood Urea Nitrogen 15 mg/dL (6-20); Calcium 8.7 mg/dL (8.5-10.5); Carbon Dioxide 24 mmol/L (22-29); Chloride 101 mmol/L (98-107); Creatinine Clr Calc Pharmacy 109.5067; Globulin 2.1 g/dL (1.3-4.6); Glomerular Filtration Rate 69.8 mL/min (90-130); Glucose 94 mg/dL (65-115); Lipase 22 U/L (13-60); Osmolality Calculated 281 mOsm/kg (285-295); Sodium 135 mmol/L (136-145); Total Bilirubin 0.4 mg/dL (0.15-1.2); Total Protein 6.4 g/dL (6.6-8.7)
[2024-03-28] MEDS: sodium chloride 0.9% 1,000 ML 999 ML IV (13:38)
[2024-03-28 13:52] LABS: Slide Review Slide Review Perform
[2024-03-28 14:08] LABS: Bilirubin Urine Negative (Negative); Blood Urine Negative (Negative); Glucose Urine UA Negative (Normal); Ketones Urine Negative (Negative); Leukocyte Esterase Urine Negative (Negative); Nitrate Urine Negative (Negative); Protein Urine Negative (Negative); Specific Gravity, Urine 1.017 (1.005-1.030); Urine Appearance Clear (CLEAR); Urine Color Yellow (Yellow); pH Urine 5.5 (5-7)
--- NOTE | 2024-03-28 14:08 | W.ED.ABDPA2 ---
HPI - Abdominal Pain General: Chief Complaint: Abdominal Pain Stated Complaint: abd pain Time Seen by Provider: 03/28/24 12:55 History of Present Illness: This patient is a 53-year-old white male who presents to the emergency department with right lower quadrant pain. He states this started 2 weeks ago. He has not had any nausea or vomiting. He has been constipated. No diarrhea. Questionable fever. No dysuria. Associated Symptoms: Reports constipation Related Data Home Medications Medication Instructions Recorded Confirmed clonazepam 1 mg tablet (Klonopin) 1 mg PO TID 10/12/19 03/28/24 methadone 40 mg soluble tablet 100 mg PO DAILY 12/02/23 03/28/24 Previous Rx's Medication Instructions Recorded albuterol sulfate 90 mcg/actuation 2 puff inhalation Q4H PRN 12/02/23 aerosol inhaler (Ventolin HFA) shortness of breath or wheezing #8.5 grams umeclidinium 62.5 mcg-vilanterol 1 inh inhalation Q24H #60 ea 12/30/23 25 mcg/actuation powdr for inhalation (Anoro Ellipta) valsartan 80 mg tablet (Diovan) 80 mg PO DAILY #30 tabs 12/30/23 peg 3350-electrolytes 236 4,000 ml PO ONCE #4,000 mL 03/28/24 gram-22.74 gram-6.74 gram-5.86 gram solution (Golytely) Allergies Allergy/AdvReac Type Severity Reaction Status Date / Time No Known Allergies Allergy Verified 03/28/24 12:35 Review of Systems General: Reports: 10 or more systems reviewed and unremarkable except in HPI and below GI: Reports: abdominal pain and constipation [facility] ED PFSH: Medical History Hyperbilirubinemia Transaminitis History of intravenous drug abuse Myositis Surgical History History of lower leg fracture ORIF robs 13 History of shoulder surgery Left Hx of cholecystectomy Family History Grandmother Cancer Grandfather Cancer Hypertension Denies family history of Diabetes Dementia Stroke Social History Smoking and tobacco/nicotine status: current every day tobacco/nicotine user Alcohol intake: unknown Substance/Drug Use: former Adopted: No Caregiver/support person: No Lives independently: Yes Household members: family Housing: House Marital status: Single Number of children: 3 service: No Current occupational status: unemployed Pets and animals: Yes Pets & animals: dog(s) and turtle(s) Do you think of yourself as: Straight/Heterosexual Current gender identity: Male Physical Exam Const: COMMON NORMALS: no acute distress, patient oriented x3 and no limitations GENERAL APPEARANCE: cooperative and comfortable HENMT: COMMON NORMALS: normocephalic, atraumatic, Normal nasal mucous membranes and turbinates present, moist oral mucous membranes and oropharynx normal HEAD & SCALP: normal to inspection, normocephalic and atraumatic FACE & SINUS: normal facial exam NOSE: Normal nasal mucous membranes and turbinates present Eye: COMMON NORMALS: Equal, round and reactive pupils present, EOMs intact bilaterally and conjunctivae normal GENERAL EYE: appearance normal, both eyes and all related structures CONJUNCTIVA: Yes conjunctivae normal PUPIL: Yes Equal, round and reactive pupils present Neck/C-Spine: COMMON NORMALS: supple and no JVD Chest: COMMONS NORMALS: normal inspection of the chest Resp: COMMON NORMALS: normal respiratory effort and clear to auscultation bilaterally AUSCULTATION: clear to auscultation bilaterally Cardio: COMMON NORMALS: no JVD, regular rate, regular rhythm, No gallops present (Cardio), No murmurs present (Cardio) and No rub (Cardio) RATE: regular rate RHYTHM: regular rhythm GI: COMMON NORMALS: Normal to inspection, nondistended, normoactive bowel sounds present, Soft to palpation and non-tender AUSCULTATION: Yes normoactive bowel sounds PALPATION: Yes Soft to palpation, Yes Tenderness to palpation present (GI) Details: RLQ (mild), No Guarding due to palpation present (GI) and No Rebound tenderness present : COMMON NORMALS: Yes no CVA tenderness BLADDER/KIDNEY EXAM: Yes no CVA tenderness Back/Pelvis: COMMON NORMALS: no CVA tenderness and thoracic and lumbar spine normal to inspection Extremity: COMMON NORMALS: normal to inspection Neuro: COMMON NORMALS: patient oriented x3 and CN's II-XII intact bilaterally Psych: COMMON NORMALS: mental status grossly normal, Normal thought process present and cooperative THOUGHT PROCESS: Normal thought process present Skin: COMMON NORMALS: no rashes or lesions noted, turgor normal and no jaundice GENERAL SKIN EXAM: no rashes or lesions noted and turgor normal Course Vital Signs: Vital signs: Vital Signs Temperature 98.3 F 03/28/24 12:35 Pulse Rate 75 03/28/24 12:35 Respiratory Rate 18 03/28/24 12:35 Blood Pressure 141/89 03/28/24 12:35 Pulse Oximetry 96 03/28/24 12:35 MDM - Abdominal Pain Medical Decision Making CBC reveals a white blood cell count of 11.6. CMP was normal. Abdominal flatplate and upright films reveal constipation. There is quite a bit of stool in the right lower quadrant where the patient is tender. I do not think a CT scan is necessary at this time. I discussed this with the patient. I will have him complete a course of GoLytely to clean his bowels out. If he continues to have pain after his bowels are cleaned out I recommended he return to the emergency department and obtain a CT scan at that time. Otherwise follow-up with primary care physician as needed. He was discharged in stable condition. Lab Data 03/28/24 13:15 03/28/24 13:15 Labs/Radiology: Laboratory Results WBC 11.60 10^3/uL (3.29-11.43) H 03/28/24 13:15 RBC 5.63 10^6/uL (3.85-5.65) 03/28/24 13:15 Hgb 16.60 g/dL (11.27-16.99) 03/28/24 13:15 Hct 49.3 % (37-53) 03/28/24 13:15 MCV 87.6 fl (82-101) 03/28/24 13:15 MCH 29.5 pg (27-33) 03/28/24 13:15 MCHC 33.7 g/dL (30-55) 03/28/24 13:15 RDW 13.1 % (12.1-15.1) 03/28/24 13:15 Plt Count 222 10^3/cmm (157-399) 03/28/24 13:15 MPV 11.8 fL (7.4-10.4) H 03/28/24 13:15 Neut % (Auto) 33.4 % 03/28/24 13:15 Lymph % (Auto) 53.4 % 03/28/24 13:15 Dickson % (Auto) 8.9 % 03/28/24 13:15 Eos % (Auto) 3.3 % 03/28/24 13:15 Baso % (Auto) 0.8 % 03/28/24 13:15 Neut # (Auto) 3.89 10^3/uL (1.8-7.7) 03/28/24 13:15 Lymph # (Auto) 6.2 10^3/uL (0.8-4.8) H 03/28/24 13:15 Dickson # (Auto) 1.0 10^3/uL (0.2-0.9) H 03/28/24 13:15 Eos # (Auto) 0.4 10^3/uL (0.0-0.8) 03/28/24 13:15 Baso # (Auto) 0.1 10^3/uL (0.0-0.1) 03/28/24 13:15 Nucleated RBC % (auto) 0 % 03/28/24 13:15 Nucleated RBCs # 0.0 /100WBC 03/28/24 13:15 Sodium 135 mmol/L (136-145) L 03/28/24 13:15 Potassium 4.0 mmol/L (3.5-5.1) 03/28/24 13:15 Chloride 101 mmol/L (98-107) 03/28/24 13:15 Carbon Dioxide 24 mmol/L (22-29) 03/28/24 13:15 Anion Gap 14.0 (5-19) 03/28/24 13:15 BUN 15 mg/dL (6-20) 03/28/24 13:15 Creatinine 1.1 mg/dL (0.7-1.2) 03/28/24 13:15 GFR Calculation 69.8 mL/min (90-130) L 03/28/24 13:15 Glucose 94 mg/dL (65-115) 03/28/24 13:15 Calculated Osmolality 281 mOsm/kg (285-295) L 03/28/24 13:15 Calcium 8.7 mg/dL (8.5-10.5) 03/28/24 13:15 Total Bilirubin 0.4 mg/dL (0.15-1.2) 03/28/24 13:15 AST 21 U/L (0-40) 03/28/24 13:15 ALT 32 U/L (0-41) 03/28/24 13:15 Alkaline Phosphatase 80 U/L (40-130) 03/28/24 13:15 Total Protein 6.4 g/dL (6.6-8.7) L 03/28/24 13:15 Albumin 4.3 g/dL (3.5-5.2) 03/28/24 13:15 Globulin 2.1 g/dL (1.3-4.6) 03/28/24 13:15 Lipase 22 U/L (13-60) 03/28/24 13:15 Amorphous Sediment Not Reportable 03/28/24 14:00 XR interpretation done by ED provider, pending radiology final review Discharge Plan Discharge Patient Disposition: Home Clinical Impression: Constipation Qualifiers: Constipation type: unspecified constipation type Qualified Code(s): K59.00 - Constipation, unspecified Condition: Stable Prescriptions: New peg 3350-electrolytes [Golytely] 236-22.74-6.74 -5.86 gram recon soln 4,000 ml PO ONCE Qty: 4000 0RF Rx Instructions: until fecal effluent is clear No Action clonazepam [Klonopin] 1 mg tablet 1 mg PO TID methadone 40 mg tablet,soluble 100 mg PO DAILY albuterol sulfate [Ventolin HFA] 90 mcg/actuation HFA aerosol inhaler 2 puff inhalation Q4H PRN (Reason: shortness of breath or wheezing) Qty: 8.5 2RF valsartan [Diovan] 80 mg tablet 80 mg PO DAILY Qty: 30 5RF Anoro Ellipta 62.5-25 mcg/actuation blister with device 1 inh inhalation Q24H Qty: 60 5RF Discharge Orders: Discharge ED (Routine); Ordered 03/28/24 Ordered By: Travis Carr Referrals: Nirav Almanzar FNP-C [Primary Care Provider] - Patient Instructions: Abdominal Pain - Adult, Constipation - Adult Activity Restrictions/Additional Instructions: Drink at least half of the 4 L container of GoLytely. If you have not completely evacuated your bowels drink the other half. Once her bowels are cleaned out if you continue to have right lower quadrant pain return to the emergency department for CT scan otherwise follow-up with primary care physician as needed. Coding Level of Care Code ED Manager Security And Safety for Reji Farfan
[2024-03-28 14:10] LABS: Add Urine Microscopic? YES; Bacteria Urine None Seen /hpf; RBC Urine 0-2 /hpf (0-2); Squamous Epithelial Cell Urine 0-5 /hpf (0-5); WBC Urine 0-5 /hpf (0-5)
[2024-03-28 14:30] VITALS: PULSE 80; RESP 18; O2SAT 94
[2024-03-28 14:38] VITALS: BP 166/103; PULSE 62; RESP 18; O2SAT 94
== END 2024-03-28 14:38 | disposition home or self-care (01) ==
PROVIDERS: Emergency Medicine; Emergency Provider Emergency Medicine; PCP Nurse Practitioner
DX: K59.00 Constipation, unspecified (principal); Z72.0 Tobacco use
CPT/HCPCS: 74022; 80053; 81001; 83690; 85025; 99284; J7030

== ENCOUNTER → 2024-07-19 14:03 | Outpatient (BNVA) | payer MEDICAID, OTHER, SELFPAY | PROVIDERS: PCP Nurse Practitioner; Visit Provider Nurse Practitioner Family | DX: D22.5 Melanocytic nevi of trunk (principal); L81.4 Other melanin hyperpigmentation; L57.3 Poikiloderma of Civatte; D48.5 Neoplasm of uncertain behavior of skin | CPT/HCPCS: 11102; 99203 ==

== ENCOUNTER → 2024-09-23 13:47 | Outpatient (BNVA) | payer OTHER, MEDICAID, SELFPAY | PROVIDERS: PCP Nurse Practitioner; Visit Provider Nurse Practitioner | DX: I10 Essential (primary) hypertension (principal); Z12.5 Encounter for screening for malignant neoplasm of prostate; M17.11 Unilateral primary osteoarthritis, right knee | CPT/HCPCS: 73562; 80053; 80061; G0103 ==

== ENCOUNTER → 2024-11-16 08:24 | Outpatient (BNVA) | payer OTHER, MEDICAID, SELFPAY | PROVIDERS: PCP Nurse Practitioner; Visit Provider Physician Assistant | DX: M25.561 Pain in right knee (principal); M25.569 Pain in unspecified knee; M17.11 Unilateral primary osteoarthritis, right knee | CPT/HCPCS: 73560; 73565 ==

== ENCOUNTER → 2025-01-18 11:02 | Outpatient (BNVA) | payer OTHER, SELFPAY | PROVIDERS: PCP Nurse Practitioner; Visit Provider Physician Assistant | DX: M17.11 Unilateral primary osteoarthritis, right knee (principal) | CPT/HCPCS: 20610; 99213; J3301; J9999 ==

== ENCOUNTER → 2025-02-08 12:46 | Outpatient (BNVA) | payer OTHER, SELFPAY | PROVIDERS: PCP Nurse Practitioner; Visit Provider Physician Assistant | DX: M19.012 Primary osteoarthritis, left shoulder (principal); M75.41 Impingement syndrome of right shoulder; M75.42 Impingement syndrome of left shoulder | CPT/HCPCS: 20610; 73030; 99213; J3301; J9999 ==

== ENCOUNTER → 2025-04-26 10:59 | Outpatient (BNVA) | payer MEDICARE, SELFPAY | PROVIDERS: PCP Nurse Practitioner; Visit Provider Physician Assistant | DX: M17.11 Unilateral primary osteoarthritis, right knee (principal); I10 Essential (primary) hypertension; E88.810 Metabolic syndrome; Z68.31 Body mass index [BMI] 31.0-31.9, adult; F17.210 Nicotine dependence, cigarettes, uncomplicated | CPT/HCPCS: 20610; 80053; 80061; 99213; J3301; J9999 ==

== ENCOUNTER → 2025-05-17 14:28 | Outpatient (BNVA) | payer MEDICARE, SELFPAY | PROVIDERS: PCP Nurse Practitioner; Visit Provider Physician Assistant | DX: M19.012 Primary osteoarthritis, left shoulder (principal); M75.41 Impingement syndrome of right shoulder; M75.42 Impingement syndrome of left shoulder | CPT/HCPCS: 20610; 99213; J3301; J9999 ==